=== PATIENT | male | born 1975 | race Caucasian/White ===

== ENCOUNTER 2017-02-13 20:15 | Observation (INO) | payer OTHER ==
[~2017-02-13] VITALS: Ht 185.4 cm; Wt 115.1 kg
[~2017-02-13 20:15] MED LIST: ALLOPURINOL100 MG PO; AMOXICILLIN500 MG PO; AUGMENTIN875 MG PO; BUPROPION XL300 MG PO; COLACE100 MG PO; DOCUSATE SODIU100 MG PO; DOXYCYCLINE MO100 MG PO; FLUOXETINE HCL20 MG PO; FLUOXETINE HCL40 MG PO; INDOCIN25 MG PO; KEFLEX500 MG PO; LIDOCAINE20 MG/1 M5 PO; LISINOPRIL-HCT1 EACH PO; LODINE400 MG PO; LORAZEPAM1 MG PO; MOBIC15 MG PO; NO HOME MEDS; NORCO 5/3251 TABLET PO; NORCO 7.5/321 TABLET PO; PANTOPRAZOLE SO40 MG PO; PERCOCET 10/1 TABLET PO; PREDNISONE5 MG PO; TRAMADOL HCL50 MG PO; TRAZODONE HCL150 MG PO; TRAZODONE HCL300 MG PO; ULTRAM50 MG PO
[2017-02-13 21:12] LABS: HEMATOCRIT 40.7 % (38.0-50.0); MCH 30.7 PG (29.0-34.0); MCHC 35.1 G/DL (30.0-36.0); MCV 87.3 FL (86-99); MEAN PLAT.VOLUME 9.8 uM^3 (9.0-12.4); PLATELET COUNT 305 K/uL (156-360); RBC DIS.WIDTH-CV 12.7 % (11.8-14.6); RBC DIS.WIDTH-SD 40.6 % (39-53); RED BLOOD COUNT 4.66 M/uL (4.00-5.50); WHITE BLOOD COUNT 8.5 K/uL (4.1-10.2)
[2017-02-13 21:21] LABS: CHLORIDE 109 mEq/L (99-109); POTASSIUM 4.1 mEq/L (3.7-5.4); SODIUM 140 mEq/L (136-147)
[2017-02-13 21:23] LABS: GLUCOSE 105 mg/dL (70-99)
[2017-02-13 21:24] LABS: ANION GAP 18 MEQ/L (2-14)
[2017-02-13 21:25] LABS: TOTAL BILIRUBIN 0.5 mg/dL (0.0-1.0)
[2017-02-13 21:26] LABS: ALKALINE PHOSPHATASE 81 IU/L (3-129)
[2017-02-13 21:27] LABS: GFR ESTIMATE (CALCULATED) > 59 mL/min/
[2017-02-13 21:28] LABS: UREA NITROGEN (BUN) 12 mg/dL (9-23)
[2017-02-13 21:32] LABS: TROP-I INTERPRETATION NEGATIVE; TROPONIN-I < 0.01 ng/mL (0.0-0.30)
[2017-02-13 21:55] LABS: BASE EXCESS -2.9 mEq/L (-3 to +3); BICARBONATE 23.7 mEq/L (22-26); CARBOXY HGB 1.2 % (0-5); COMMENTS - BLOOD GASES A+C+; DEVICE ROOM AIR; METHEMOGLOBIN 1.5 % (0-1.5); PCO2 47 mm Hg (35-45); PO2 40 mm Hg (80-100); SITE LR; TOTAL RESP RATE 24 resp/min; pH 7.31 (7.35-7.45)
[2017-02-13 22:02] LABS: SERUM ETHYL ALCOHOL < 10 mg/dL
[2017-02-13 22:05] LABS: SALICYLATE < 5.0 MG/DL (15-30)
[2017-02-13] MEDS ORDERED: TRAZODONE HCL300 MG PO (23:15)
[2017-02-13] MEDS ORDERED: VENLAFAXINE HCL75 M3 PO (23:15)
[2017-02-13] MEDS ORDERED: GABAPENTIN300 MG PO (23:15)
[2017-02-14 01:49] VITALS: BP 121/60
[2017-02-14 02:54] LABS: TROP-I INTERPRETATION NEGATIVE; TROPONIN-I < 0.01 ng/mL (0.0-0.30)
[2017-02-14 04:25] VITALS: BP 136/83
[2017-02-14 07:46] VITALS: BP 126/79
[2017-02-14 10:18] LABS: TROP-I INTERPRETATION NEGATIVE; TROPONIN-I < 0.01 ng/mL (0.0-0.30)
[2017-02-14 10:22] LABS: ANION GAP 9 MEQ/L (2-14); CHLORIDE 105 MEQ/L (99-109); GFR ESTIMATE (CALCULATED) > 59 mL/min/; GLUCOSE 87 mg/dL (70-99); POTASSIUM 3.8 MEQ/L (3.7-5.4); SAMPLE HEMOLYSIS CHECK 0; SAMPLE ICTERIC CHECK 0; SAMPLE LIPEMIA CHECK 1; SODIUM 139 MEQ/L (136-147); UREA NITROGEN (BUN) 13 mg/dL (9-23)
[2017-02-14 12:11] VITALS: BP 116/63
== END 2017-02-14 13:30 | disposition home or self-care (01) ==
LOC: EME 20:15 → EDOF 23:41 → 5WEST 23:41
PROVIDERS: Emergency Medicine; Family Medicine; Nurse Practitioner Adult Health
DX: R07.89 Other chest pain (principal); E87.2 Acidosis; I25.10 Atherosclerotic heart disease of native coronary artery without angina pectoris; I10 Essential (primary) hypertension; F41.9 Anxiety disorder, unspecified; F32.9 Major depressive disorder, single episode, unspecified
CPT/HCPCS: 36600; 70450; 71010; 80048; 80053; 81003; 82803; 84484; 85027; 93005; 99281; 99285; G0378; G0480; J1650; J2405; J7030; S0028

== ENCOUNTER 2017-02-24 20:49 | Emergency (ER) | payer OTHER ==
[~2017-02-24] VITALS: Ht 185.4 cm; Wt 115.0 kg
[~2017-02-24 20:49] MED LIST changes: +GABAPENTIN300 MG PO; +VENLAFAXINE HCL75 M3 PO
[2017-02-24 22:06] LABS: HEMATOCRIT 42.9 % (38.0-50.0); MCH 29.7 PG (29.0-34.0); MCHC 34.7 G/DL (30.0-36.0); MCV 85.6 FL (86-99); MEAN PLAT.VOLUME 9.7 uM^3 (9.0-12.4); PLATELET COUNT 271 K/uL (156-360); RBC DIS.WIDTH-CV 12.6 % (11.8-14.6); RED BLOOD COUNT 5.01 M/uL (4.00-5.50); WHITE BLOOD COUNT 8.9 K/uL (4.1-10.2)
[2017-02-24 22:17] LABS: CHLORIDE 106 mEq/L (99-109); SODIUM 138 mEq/L (136-147)
[2017-02-24 22:19] LABS: GLUCOSE 103 mg/dL (70-99)
[2017-02-24 22:20] LABS: ANION GAP 15 MEQ/L (2-14)
[2017-02-24 22:22] LABS: GFR ESTIMATE (CALCULATED) > 59 mL/min/
[2017-02-24 22:23] LABS: UREA NITROGEN (BUN) 15 mg/dL (9-23)
[2017-02-24 22:26] LABS: TROP-I INTERPRETATION NEGATIVE; TROPONIN-I < 0.01 ng/mL (0.0-0.30)
[2017-02-25 03:36] VITALS: BP 111/64
[2017-02-25 05:10] LABS: D-DIMER ELISA 0.33 mg/L FEU (< 0.57)
[2017-02-25 05:13] LABS: CHLORIDE 105 mEq/L (99-109); POTASSIUM 4.1 mEq/L (3.7-5.4); SODIUM 140 mEq/L (136-147)
[2017-02-25 05:15] LABS: GLUCOSE 99 mg/dL (70-99)
[2017-02-25 05:16] LABS: ANION GAP 11 MEQ/L (2-14)
[2017-02-25 05:17] LABS: TOTAL BILIRUBIN 0.7 mg/dL (0.0-1.0)
[2017-02-25 05:19] LABS: ALKALINE PHOSPHATASE 78 IU/L (3-129); GFR ESTIMATE (CALCULATED) > 59 mL/min/
[2017-02-25 05:20] LABS: DIRECT BILIRUBIN 0.2 mg/dL (0.0-0.3); TROP-I INTERPRETATION NEGATIVE; TROPONIN-I < 0.01 ng/mL (0.0-0.30); UREA NITROGEN (BUN) 19 mg/dL (9-23)
[2017-02-25 05:22] LABS: LIPASE 29 U/L (1.0-51.0)
[2017-02-25 07:40] VITALS: BP 102/60
[2017-02-25 10:38] VITALS: BP 123/83
[2017-02-25] MEDS ORDERED: DOXYCYCLINE HY100 MG PO (12:47)
[2017-02-25 12:59] LABS: TROP-I INTERPRETATION NEGATIVE; TROPONIN-I < 0.01 ng/mL (0.0-0.30)
== END 2017-02-25 13:28 | disposition home or self-care (01) ==
LOC: EME 20:49 → 5WEST 02-25 02:21 → EDOF 02-25 02:21 → EME 02-25 02:21 → 5WEST 02-25 03:13
PROVIDERS: Hospitalist
DX: R07.9 Chest pain, unspecified (principal); A69.20 Lyme disease, unspecified; F32.9 Major depressive disorder, single episode, unspecified; F41.9 Anxiety disorder, unspecified; I10 Essential (primary) hypertension; E66.9 Obesity, unspecified; R10.9 Unspecified abdominal pain; E87.2 Acidosis; K27.9 Peptic ulcer, site unspecified, unspecified as acute or chronic, without hemorrhage or perforation; M19.90 Unspecified osteoarthritis, unspecified site; I25.2 Old myocardial infarction; Z82.49 Family history of ischemic heart disease and other diseases of the circulatory system; R53.1 Weakness; Z68.33 Body mass index [BMI] 33.0-33.9, adult; Z87.891 Personal history of nicotine dependence
CPT/HCPCS: 70450; 71020; 80048; 80076; 83605; 83690; 84484; 85027; 85379; 93005; 99281; 99285; G0378; J7030

== ENCOUNTER 2017-08-22 14:11 | Emergency (ER) | payer OTHER ==
[~2017-08-22] VITALS: Ht 185.4 cm; Wt 113.1 kg
[~2017-08-22 14:11] MED LIST changes: +DOXYCYCLINE HY100 MG PO
[2017-08-22 15:07] LABS: EOSINOPHIL COUNT 0.1 K/uL (0-0.3); HEMATOCRIT 42.6 % (38.0-50.0); IMMATURE GRANULOCYTE (%) 0.3 % (0.0-0.7); INSTRUMENT ABS NEUTROPHIL CT 4.7 K/uL; LYMPHOCYTE COUNT 1.5 K/uL (1.0-2.8); MCH 29.2 PG (29.0-34.0); MCHC 34.3 G/DL (30.0-36.0); MCV 85.2 FL (86-99); MEAN PLAT.VOLUME 9.7 uM^3 (9.0-12.4); MONOCYTE (%) 10.2 % (3-12); MONOCYTE COUNT 0.7 K/uL (0-0.8); NEUTROPHIL (%) 67.1 % (45-76); NEUTROPHIL COUNT 4.7 K/uL (1.8-6.4); PLATELET COUNT 259 K/uL (156-360); RBC DIS.WIDTH-CV 12.6 % (11.8-14.6); RBC DIS.WIDTH-SD 38.6 % (39-53)
[2017-08-22 15:16] LABS: INTER. NORMALIZED RATIO 1.1; PROTHROMBIN TIME 11.6 SEC (10.2-12.9)
[2017-08-22 15:19] LABS: PTT 33.5 SEC (25-37)
[2017-08-22 15:23] LABS: CHLORIDE 104 mEq/L (99-109); POTASSIUM 3.4 mEq/L (3.7-5.4); SODIUM 137 mEq/L (136-147)
[2017-08-22 15:25] LABS: GLUCOSE 116 mg/dL (70-99)
[2017-08-22 15:26] LABS: ANION GAP 9 MEQ/L (2-14)
[2017-08-22 15:27] LABS: TOTAL BILIRUBIN 0.4 mg/dL (0.0-1.0)
[2017-08-22 15:28] LABS: SERUM ETHYL ALCOHOL < 10 mg/dL
[2017-08-22 15:29] LABS: ALKALINE PHOSPHATASE 110 IU/L (3-129); GFR ESTIMATE (CALCULATED) > 59 mL/min/
[2017-08-22 15:30] LABS: DIRECT BILIRUBIN 0.1 mg/dL (0.0-0.3); UREA NITROGEN (BUN) 14 mg/dL (9-23)
[2017-08-22 15:33] LABS: TROP-I INTERPRETATION NEGATIVE; TROPONIN-I < 0.01 ng/mL (0.0-0.30)
[2017-08-22 16:43] LABS: LIPASE 25 U/L (1.0-51.0)
[2017-08-22 17:16] LABS: ADD MIUA? NO; BILIRUBIN NEGATIVE; BLOOD NEGATIVE; COLOR STRAW ((YELLOW)); GLUCOSE (STRIP) NEGATIVE; KETONES NEGATIVE; LEUKOCYTES NEGATIVE; NITRITE NEGATIVE; PROTEIN (STRIP) NEGATIVE; SPECIFIC GRAVITY 1.012 (1.000-1.030); UCUL ADDED? NO
[2017-08-22 20:14] VITALS: BP 120/89
== END 2017-08-22 20:14 | disposition home or self-care (01) ==
LOC: EME 14:11
PROVIDERS: Emergency Medicine
DX: R53.83 Other fatigue (principal); R10.9 Unspecified abdominal pain; R11.2 Nausea with vomiting, unspecified; J02.9 Acute pharyngitis, unspecified; M54.9 Dorsalgia, unspecified; R41.82 Altered mental status, unspecified; K57.30 Diverticulosis of large intestine without perforation or abscess without bleeding; I10 Essential (primary) hypertension; Z87.891 Personal history of nicotine dependence
CPT/HCPCS: 70450; 71010; 74177; 76705; 80048; 80076; 81003; 83605; 83690; 83880; 84484; 85025; 85610; 85730; 93005; 99281; 99284; G0480; J2270; J2405; S0028